=== PATIENT | female | born 1955 ===

== ENCOUNTER 2025-06-05 08:57 | Outpatient (CLI) | payer MEDICARE, BC | END 2025-06-05 17:00 | disposition home or self-care (01) | LOC: Rad HDHVI 08:57 | PROVIDERS: ATTEND Internal Medicine Cardiovascular Disease | DX: I77.819 Aortic ectasia, unspecified site (principal); I10 Essential (primary) hypertension | CPT/HCPCS: 93306 ==

== ENCOUNTER 2025-06-13 09:17 | Outpatient (CLI) | payer MEDICARE, BC ==
[~2025-06-13] VITALS: Ht 162.6 cm; Wt 80.3 kg
== END 2025-06-13 17:00 | disposition home or self-care (01) ==
LOC: Rad HDHVI 09:17
PROVIDERS: ATTEND Internal Medicine Cardiovascular Disease
DX: I49.3 Ventricular premature depolarization (principal); I11.9 Hypertensive heart disease without heart failure; E78.00 Pure hypercholesterolemia, unspecified; I49.1 Atrial premature depolarization; R00.0 Tachycardia, unspecified; R06.00 Dyspnea, unspecified; Z13.6 Encounter for screening for cardiovascular disorders; Z82.49 Family history of ischemic heart disease and other diseases of the circulatory system
CPT/HCPCS: 78452; 93017; A9500; 96374